=== PATIENT | male | born 1945 | race Caucasian/White ===

== ENCOUNTER 2016-08-26 11:25 | Emergency (ER) | payer MEDICARE ==
[~2016-08-26] VITALS: Ht 175.3 cm; Wt 97.6 kg
[2016-08-26] MEDS ORDERED: METF100010 PO (12:20)
[2016-08-26] MEDS ORDERED: COLC0.6T37 PO (12:20)
[2016-08-26] MEDS ORDERED: ATOR20TA PO (12:20)
[2016-08-26] MEDS ORDERED: LISI-170 PO (12:20)
[2016-08-26] MEDS ORDERED: SODIUM CHLORIDE FLUSH 10ML SYR IVF ONE (12:30)
[2016-08-26] MEDS ORDERED: GLUCAGON 1 MG IVPush ONE (12:30)
[2016-08-26] MEDS ORDERED: SODIUM CHLORIDE 0.9% 1,000ML IVBOLUS ONE (12:30)
[2016-08-26 12:36] LABS: BLOOD UREA NITROGEN 17 mg/dL (7-18)
[2016-08-26 12:45] LABS: DIFF TOTAL CELLS COUNTED 100 CELL DIFF
[2016-08-26 12:46] LABS: ANISOCYTOSIS 1+; VERIFY COUNTS? YES
[2016-08-26 13:17] VITALS: BP 148/68
== END 2016-08-26 13:21 | disposition home or self-care (01) ==
LOC: ED 13:00
DX: D72.829 Elevated white blood cell count, unspecified (principal); E11.9 Type 2 diabetes mellitus without complications; E78.00 Pure hypercholesterolemia, unspecified; I10 Essential (primary) hypertension; K21.9 Gastro-esophageal reflux disease without esophagitis; E78.5 Hyperlipidemia, unspecified
CPT/HCPCS: 36415; 71010; 80048; 82040; 85025; 93005; 96360; 99285; J7030